=== PATIENT | male | born 1945 | race Caucasian/White ===

== ENCOUNTER 2016-07-14 15:34 | Emergency (ER) | payer OTHER ==
[~2016-07-14] VITALS: Ht 160 cm; Wt 82.0 kg
[~2016-07-14 15:34] MED LIST: HYDR12.54 PO
[2016-07-14 16:17] VITALS: BP 131/95
[2016-07-14] MEDS ORDERED: TETANUS, DIPHTHERIA, PERTUSSIS VAC/PF 0.5ML (>7YR OLD) IM ONE (17:15)
[2016-07-14] MEDS ORDERED: BACITRACIN ZINC OINT UDPKT TOP ONE (17:15)
[2016-07-14] MEDS ORDERED: LIDOCAINE HCL 1% 20ML VIAL (Pyxis) INJ MC ONE (17:15)
== END 2016-07-14 18:42 | disposition home or self-care (01) ==
LOC: ER 17:36
DX: S61.211A Laceration without foreign body of left index finger without damage to nail, initial encounter (principal); W45.8XXA Other foreign body or object entering through skin, initial encounter; W27.2XXA Contact with scissors, initial encounter; Y93.H2 Activity, gardening and landscaping; Y92.096 Garden or yard of other non-institutional residence as the place of occurrence of the external cause; I10 Essential (primary) hypertension
CPT/HCPCS: 12001; 90471; 90715; 99284; J3490

== ENCOUNTER 2016-07-23 11:42 | Emergency (ER) | payer OTHER ==
[~2016-07-23] VITALS: Ht 157.5 cm; Wt 69.0 kg
[2016-07-23 14:38] VITALS: BP 132/84
== END 2016-07-23 16:31 | disposition home or self-care (01) ==
LOC: ER 11:44
DX: S61.211D Laceration without foreign body of left index finger without damage to nail, subsequent encounter (principal); I10 Essential (primary) hypertension; W45.8XXD Other foreign body or object entering through skin, subsequent encounter; Y99.8 Other external cause status; Y92.89 Other specified places as the place of occurrence of the external cause
CPT/HCPCS: 99281

== ENCOUNTER 2018-09-13 12:51 | Inpatient (IN) | payer OTHER ==
[~2018-09-13] VITALS: Ht 160 cm; Wt 60.3 kg
[2018-09-13 14:20] LABS: BASOPHILS % 0.5 % (0.0-2.0); HEMATOCRIT. 51.4 % (42.0-52.0); HEMOGLOBIN. 17.9 g/dL (14.0-18.0); LYMPHOCYTES % 13.8 % (20.0-50.0); MEAN CORPUSCULAR HEMOGLOBIN 32.8 pg (28.0-32.0); MEAN CORPUSCULAR VOLUME 94.4 fL (80.0-94.0); MEAN PLATELET VOLUME 8.6 fl (7.4-10.4); MONOCYTES % 12.6 % (2.0-8.0); NEUTROPHILS % 73.1 % (40.0-76.0); PLATELET 239 x1000/uL (130-400); RED BLOOD CELL COUNT 5.44 mill/uL (4.7-6.1); RED CELL DISTRIBUTION WIDTH 13.2 % (11.6-14.6)
[2018-09-13 14:25] LABS: CHLORIDE 96 mEq/L (98-107)
[2018-09-13 14:28] LABS: INR 1.1; PARTIAL THROMBOPLASTIN TIME 30.9 sec (23.4-31.0); PROTHROMBIN TIME 11.6 sec (9.6-11.0)
[2018-09-13] MEDS ORDERED: ASPIRIN 325MG EC TABLET PO ONE (15:45)
[2018-09-13 18:52] VITALS: BP 135/93
[2018-09-13 20:00] VITALS: BP 132/90
[2018-09-13] MEDS ORDERED: ENOXAPARIN 40MG/0.4ML SYR SUBCUT SCH (21:30)
[2018-09-13] MEDS ORDERED: ACETAMINOPHEN 325MG TABLET PO PRN (21:30)
[2018-09-13] MEDS ORDERED: IPRATROPIUM/ALBUTEROL 0.5-3(2.5)MG/3ML NEB INH PRN (21:30)
[2018-09-13] MEDS ORDERED: ONDANSETRON HCL 4MG/2ML INJ IV PRN (21:30)
[2018-09-13] MEDS ORDERED: CLONIDINE 0.1MG TABLET PO PRN (21:30)
[2018-09-13] MEDS: ASPIRIN 81MG TABLET PO SCH (22:18)
[2018-09-13] MEDS ORDERED: AMLO10TA4 MT (23:16)
[2018-09-14] VITALS: BP_SYST 102; BP_SYST 96; BP_SYST 99; BP_DIAS 57; BP_DIAS 67; BP_DIAS 69
[2018-09-14 04:00] VITALS: BP 112/64
[2018-09-14 07:30] LABS: CHLORIDE 96 mEq/L (98-107)
[2018-09-14 07:38] LABS: BASOPHILS % 0.6 % (0.0-2.0); EOSINOPHILS % 0.3 % (0.0-5.0); HEMATOCRIT. 49.1 % (42.0-52.0); HEMOGLOBIN. 17.1 g/dL (14.0-18.0); MEAN CORPUSCULAR HEMOGLOBIN 32.7 pg (28.0-32.0); MEAN CORPUSCULAR VOLUME 94.3 fL (80.0-94.0); MEAN PLATELET VOLUME 9.2 fl (7.4-10.4); MONOCYTES % 11.6 % (2.0-8.0); NEUTROPHILS % 70.5 % (40.0-76.0); PLATELET 224 x1000/uL (130-400); RED BLOOD CELL COUNT 5.21 mill/uL (4.7-6.1)
[2018-09-14 07:48] LABS: LDL CHOLESTEROL 113 mg/dL (5-100)
[2018-09-14 07:49] LABS: HDL CHOLESTEROL 26 mg/dL (40-59)
[2018-09-14 07:50] LABS: T4 FREE 0.99 ng/dL (0.76-1.46)
[2018-09-14 08:00] VITALS: BP 120/80
[2018-09-14] MEDS: ASPIRIN 81MG TABLET PO SCH (09:02)
[2018-09-14] MEDS ORDERED: SODIUM CHLORIDE 0.9% 1,000 ML IV SCH (11:15)
[2018-09-14 12:00] VITALS: BP 122/86
[2018-09-14] MEDS ORDERED: LEVOFLOXACIN 500MG PREMIX 100 ML IV SCH (13:00)
[2018-09-14] MEDS ORDERED: POTASSIUM CHLORIDE INJ 40 MEQ in DEXT 5% WATER 250 ML IV NR (13:00)
[2018-09-14] MEDS ORDERED: DIPHENHYDRAMINE 50MG/ML VIAL IV PRN (14:15)
[2018-09-14] MEDS ORDERED: HYDROCODONE/ACETAMINOPHEN 5/325MG TABLET PO PRN (14:15)
[2018-09-14 16:00] VITALS: BP 123/82
[2018-09-14 17:18] VITALS: BP 123/82
[2018-09-14 18:40] LABS: HEPATITIS B SURFACE ANTIGEN NEGATIVE
[2018-09-14 19:10] LABS: HEPATITIS A AB IGM NEGATIVE (NEGATIVE)
[2018-09-14] MEDS ORDERED: ATORVASTATIN CALCIUM 10MG TABLET PO SCH (21:00)
== END 2018-09-14 17:45 | disposition home or self-care (01) | DRG 69 ==
LOC: ER 12:51 → 8WST 16:04 → EDBEDREQ 16:24 → EDBEDREQTM 16:24 → ENRESERV 17:17
PROVIDERS: ADMIT Internal Medicine; ATTEND Internal Medicine
DX: G45.9 Transient cerebral ischemic attack, unspecified (principal); G93.40 Encephalopathy, unspecified; E87.1 Hypo-osmolality and hyponatremia; N39.0 Urinary tract infection, site not specified; I69.351 Hemiplegia and hemiparesis following cerebral infarction affecting right dominant side; I67.82 Cerebral ischemia; R29.810 Facial weakness; E87.6 Hypokalemia; F03.90 Unspecified dementia, unspecified severity, without behavioral disturbance, psychotic disturbance, mood disturbance, and anxiety; I10 Essential (primary) hypertension; G31.9 Degenerative disease of nervous system, unspecified; K70.9 Alcoholic liver disease, unspecified; E03.9 Hypothyroidism, unspecified; E78.5 Hyperlipidemia, unspecified; Z79.899 Other long term (current) drug therapy
CPT/HCPCS: 36415; 70551; 71045; 76700; 80061; 82140; 82962; 83036; 83880; 84145; 84439; 84443; 84484; 86705; 86709; 86803; 87340; 93005; 93306; 93880; 96372; 97162; 99285; J1650; J1956; J3480; J7030; J7060